=== PATIENT | female | born 1950 ===

== ENCOUNTER 2016-06-17 09:05 | Outpatient (CLI) | payer MEDICARE ==
--- NOTE | 2016-06-17 10:28 | Mammography Report ---
Bilateral mammogram: Routine views are obtained in addition to a spot CC projection of the right lateral breast. Comparison of the right breast to prior exams in 2016 shows no interval change in the questionable asymmetry identified in the lateral breast. There is no prior exam on the left. There is a benign nodule noted in the upper outer left breast. The remainder of the breast pattern is unremarkable and generally fatty replaced as is the right. CAD used. Impression: Stable right breast pattern and benign left breast pattern. Recommendation: Annual mammogram followup. BI-RADS CATEGORY: 2 = Benign ACR BI-RADS MAMMOGRAPHIC CODES: 0 = Needs additional imaging evaluation; 1 = Negative; 2 = Benign; 3 = Probably benign; 4 = Suspicious; 5 = Malignant; 6 = Known biopsy-proven malignancy COMMENT: 1. Dense breast tissue, i.e., adenosis, fibrocystic changes, etc., may obscure an underlying neoplasm. 2. Approximately 10% of cancers are not detected with mammography. 3. A negative mammography report should not delay biopsy if a clinically suspicious mass is present. The
== END 2016-06-17 09:06 | disposition home or self-care (01) ==
LOC: SPVWC 09:05
PROVIDERS: ATTEND Surgery
DX: N63 Unspecified lump in breast (principal); N64.89 Other specified disorders of breast
CPT/HCPCS: 77066; G0204